=== PATIENT | male | born 1960 | race Caucasian/White ===

== ENCOUNTER 2023-06-16 12:25 | Emergency (ER) | payer BC ==
[~2023-06-16] VITALS: Ht 175.3 cm; Wt 84.0 kg
[2023-06-16] MEDS ORDERED: HYDROcodone-ACET 10/325MG TAB PO ONE (15:30)
[2023-06-16] MEDS ORDERED: IBUP-1455 PO (16:35)
[2023-06-16] MEDS ORDERED: PERCOT PO (16:35)
[2023-06-16 17:10] VITALS: BP 137/75; PULSE 87; RESP 18; TEMP 97.6; O2SAT 97
== END 2023-06-16 17:12 | disposition home or self-care (01) ==
LOC: ER 12:25
DX: M47.896 Other spondylosis, lumbar region (principal); M54.41 Lumbago with sciatica, right side
CPT/HCPCS: 72100